=== PATIENT | female | born 1955 | race Caucasian/White ===

== ENCOUNTER → 2021-04-02 | Outpatient (CLI) | payer BC ==
--- NOTE | 2021-04-02 13:17 | XR ---
KUB HISTORY: Left-sided pain, kidney stones, constipation Frontal KUB submitted Calcifications in the pelvis are felt likely to represent phleboliths. Bone mineralization is maintai amisha. There is no evident bowel obstruction or pneumoperitoneum. Overlying bowel gas may obscure detai l. There is some retained fecal debris present within the distribution of the colon. Questionable pun ctate calcifications over the left kidney at the L2-3 level. IMPRESSION: Difficult to exclude kidney stones, nonobstructive bowel gas pattern
== END | disposition home or self-care (01) ==
LOC: RADXRMAIN 12:38
PROVIDERS: ATTEND Internal Medicine
DX: N20.0 Calculus of kidney (principal)
CPT/HCPCS: 74018

== ENCOUNTER → 2023-04-23 | Outpatient (CLI) | payer MEDICARE, OTHER ==
--- NOTE | 2023-04-23 08:42 | XR ---
EXAMINATION TYPE: XR chest 2V DATE OF EXAM: 04/23/2023 COMPARISON: NONE TECHNIQUE: PA and lateral views submitted. HISTORY: Preop FINDINGS: The lungs are clear and there is no pneumothorax, pleural effusion, or focal pneumonia. Heart size normal and no overt failure. Osseous structures demonstrate mild degenerative changes of the spine. P revious breast surgery noted. IMPRESSION: 1. No acute process.
== END | disposition home or self-care (01) ==
LOC: RADXRMAIN 06:51
PROVIDERS: ATTEND Family Medicine
DX: Z01.810 Encounter for preprocedural cardiovascular examination (principal)
CPT/HCPCS: 71046